=== PATIENT | male | born 1965 ===

== ENCOUNTER 2016-11-08 21:50 | Emergency (ER) | payer OTHER ==
--- NOTE | 2016-11-08 22:53 | DIAGNOSTIC IMAGING REPORT ---
PROCEDURE: XR TIBIA AND FIBULA - RIGHT INDICATION: Dog bite, initial encounter TECHNIQUE: AP and lateral views COMPARISON: None. FINDINGS: Soft tissue laceration of the right calf proximally and laterally but no evidence of a radiopaque foreign body. No fracture. Mild tibiotalar joint degenerative changes IMPRESSION: 1. Soft tissue laceration
--- NOTE | 2016-11-08 23:20 | ED NURSING NOTES ---
Clinical Report - Nurses [facility] [address] [place] [address] 11/08/2016 21:51 Patient: RACHEL TOMAS TRIAGE Triage time 22:Nov 08 2016 late entry -. Chief Complaint: PUNCTURE WOUND. Alert. No acute distress. SHASHI COMA SCORE: Shashi Coma Scale: 15- eyes open spontaneously (4); best verbal response- oriented x 4 (5); best motor response- obeys commands (6). --22: Brionna Terry R.N. 22:11/08/16. BP: 168/101. HR: 110. RR: 20. O2 saturation: 98%. Temp: 98.2 F. --22: Brionna Terry R.N. Weight: 81.6 kg stated. Height/Length: 72 inches Per Patient. BMI: 24.4. --22: Brionna Terry R.N. Medications BP MED . --22: Brionna Terry R.N. Allergies Penicillins. --22: Brionna Teryr R.N. History Historian: police and patient. Arrived in police custody. ( Dog Bite to the Right Lateral Calf.). Location of injuries: right leg. This occurred just prior to arrival. Trauma activation: Pre-hospital notification of patient arrival was received. PAST MEDICAL HX: Tetanus status: up-to-date. SOCIAL HX: Smoker- current status unknown. Alcohol use. No drug use. No infectious disease exposure. NUTRITIONAL RISK ASSESSMENT: The nutritional risk assessment revealed no deficiencies. FUNCTIONAL ASSESSMENT: Functional assessment: no impairments noted. LEARNING NEEDS ASSESSMENT: The learning needs assessment revealed no barriers. SKIN INTEGRITY ASSESSMENT: Skin integrity risk assessment completed. No skin integrity risk identified. --22: Brionna Terry R.N. PROBLEMS: Hypertension. --22:11 Brionna Terry R.N. PHYSICAL ASSESSMENT Ambulatory to room. GENERAL / NEURO / PSYCH: Oriented X 4. CVS: Capillary refill less than 2 seconds. EXTREMITIES: Neuro-vascular status intact to the extremity. Right leg. SKIN: Skin is warm and dry. ( Dog Bite to Right Lateral Calf. Puncture Wound). --23:22 Brionna Terry R.N. NURSING PROGRESS NOTES 21:57 11/08/2016 Augmentin (Amoxicillin-Pot Clavulanate) PO 875 mg given. Allergies verified and confirmed 5 rights. --21:57 Silvestre Dale R.N. ( PA doing wound care.). --22:12 Brionna Terry R.N. 22:11 Portable x-ray. --22:23 Silvestre Dale R.N. 22:51 11/08/2016 Benadryl (DiphenhydrAMINE HCl) PO 50 mg given. Allergies verified, confirmed 5 rights and sedative warning given to the patient. --22:51 Brionna Terry R.N. Patient ID band checked for patient name and birthdate: patient confirmed. Blood samples drawn from the right antecubital space with 21g butterfly by [employer][email or web address] per protocol ; labeled in presence of the patient and sent to lab: rainbow set. --22:55 Katie Prabhakar Applied dressing. Secured with kerlix ([id number]). --00:00 Katie Prabhakar. DISPOSITION / DISCHARGE Departure time: 23:30. Condition at departure: stable. No learning barriers present. Discharge instructions provided and reviewed with the patient. Reviewed medication(s) side effects, precautions, dosing and course information. Prescription(s) given to the patient. Patient verbalized understanding. Written instructions provided in Bengali. The patient was discharged to police department facility and accompanied by a police escort. He left the Emergency Department ambulatory and via police department vehicle. FALL RISK ASSESSMENT: Fall risk assessment completed. No fall risk identified. --23:52 Silvestre Dale R.N. 23:49 11/08/16. BP: 132/93. HR: 88. RR: 15. O2 saturation: 97%. Pain level now: 01/06. --23:52 Silvestre Dale R.N. Locked/Released at 11/09/2016 0:05 by Silvestre Dale R.N.
--- NOTE | 2016-11-08 23:20 | ED ORDER SUMMARY ---
..... Patient: RACHEL TOMAS OrderSheet [facility] VisitID: [id number] [place] [address] 51y, M Registration Date/Time: 11/08/2016 ORDER SHEET Weight: 81.6 kg (stated) Allergies: Penicillins GENERAL ORDERS: Tibia/Fibula Right Urgent (21:54 11/08/2016 EKoroleva P.A.-C) (Ack 22:05 NHouse ER Tech1) (22:45 CHagerty ER Time Clock Repairer) Wound Irrigation (21:54 11/08/2016 EKoroleva P.A.-C) (22:45 CHagerty ER Time Clock Repairer) HIV I and II Urgent (22:24 11/08/2016 EKoroleva P.A.-C) (Ack 22:45 CHagerty ER Time Clock Repairer) (23:51 JQuivey R.N.) HepCAB Urgent (22:24 11/08/2016 EKoroleva P.A.-C) (Ack 22:45 CHagerty ER Time Clock Repairer) (23:51 JQuivey R.N.) HepBSAG Urgent (22:24 11/08/2016 EKoroleva P.A.-C) (Ack 22:45 CHagerty ER Time Clock Repairer) (23:51 JQuivey R.N.) HepBSAB Urgent (22:24 11/08/2016 EKoroleva P.A.-C) (Ack 22:45 CHagerty ER Time Clock Repairer) (23:51 JQuivey R.N.) MEDICATION ORDERS: Augmentin PO 875 mg (NOW) (21:54 11/08/2016 EKoroleva P.A.-C) (Ack 21:55 JQuivey R.N.) (21:57 JQuivey R.N.) Benadryl PO 50 mg (NOW) (22:32 11/08/2016 EKoroleva P.A.-C) (22:51 SBalde R.N.) IV FLUIDS: ORDER SHEET NOTES: [Electronically signed by Susana Causey PErlinAErlin-May (23:25 11/08/2016)] [Electronically signed by Silvestre Dale R.N. (00:05 11/09/2016)] [Electronically locked/signed by Silvestre Dale R.N. (00:05 11/09/2016)]
--- NOTE | 2016-11-08 23:20 | ED CLINICAL REPORT ---
Clinical Report - Physicians/Mid Levels [facility] [address] [place] [address] 11/08/2016 21:51 Patient: RACHEL TOMAS Arrived- (police). Came in police custody. HISTORY OF PRESENT ILLNESS Chief Complaint: Injury to right and left leg. The injury happened just prior to arrival. Occurred on a street. Patient is experiencing mild pain. Patient denies injury to the head or neck. (atient was running, when he sustained a dog bite to his right leg, possibly is on his left leg. No prior major injury to the areas. Tdap up to date.). REVIEW OF SYSTEMS The patient sustained a laceration. He has no pain on weight bearing. All systems otherwise negative, except as recorded above. PAST HISTORY The patient has not had a prior injury to the same area. Tetanus immunization status is up-to-date. SOCIAL HISTORY Alcohol use. No drug use. PHYSICAL EXAM Head: Head atraumatic. CVS: Normal heart rate and rhythm. Heart sounds normal. Respiratory: No respiratory distress. Breath sounds normal. Skin: Skin warm. Extremities: Right le.5 cm laceration. SEE LACERATION PROCEDURE NOTE #1. (gaping lac with adipose tissue, no visible fb, no erythema/ drainage. full distal sensation and rom, lateral/ posterior mid tib/fib). Left leg. (small posterior abrasions, partial thickness.). Gait: Normal gait. Neuro, Vascular and Tendons: Vascular status intact. Motor intact. Neuro: Oriented X 3. LABS, X-RAYS, AND EKG Rt Tib/Fib X-ray: (IMPRESSION: 1. Soft tissue laceration Electronically Final signed by:Blaise Smith MD 11/08/2016 10:53:26 PM). Laboratory Tests: [id number]: (RAJ: 11/08/2016 22:45) ( MsgRcvd 11/08/2016 23:18) Final results Test Result Flag Units (Reference) HIV-1 P24 ANTIGEN NEGATIVE (NEGATIVE) HIV-1 AND OR HIV-2 ANTIBODY NEGATIVE (NEGATIVE) . PROGRESS AND PROCEDURES Laceration Repair: Time: 23:23 Nov 08 2016. Location: (right , lower extremity). Time-out completed immediately before the procedure. Length: 2 cm. Complexity: simple (local anesthesia used and sutured). Wound depth/shape- linear and involving fascia. Wound is clean. No sensory deficit or motor deficit distally. Local anesthesia provided using 1% lidocaine with epi. Subcutaneous closure: interrupted 4-0. Post-procedure: he is stable and there are no complications. Bleeding is controlled and neuro-vascular status is intact distal to the wound. Dressing applied. Tetanus immunization up-to-date. Course of Care: started on abx, however pt with now an allergy, given benadryl, given rx, stable for intermediate. No signs of active disease, no signs of fb. Stable to f/u outpatient. Patient is stable. Symptoms better. Patient/family counseled. Disposition: Discharged. Condition: good. CLINICAL IMPRESSION Multiple superficial and deep dog bites to the right lower leg and left lower leg. Bites do not appear infected. Clear for Prison. INSTRUCTIONS Protect wound and keep wound area clean. Apply bacitracin twice daily. Sutures should be removed in ten days. Elevate affected areas above chest level. You may walk and bear weight as tolerated. (suture removal in 10 days Clear for Prison). Prescription Medications: Doxycycline 100 mg: Take 1 capsule orally every 12 hours for 10 days. No refill. Metronidazole 500 mg: Take 1 tablet orally every 8 hours for 10 days. No refill OTC Medications: Take OTC medications according to label instructions. Available over the counter. Acetaminophen (available over the counter): take according to label instructions. Motrin (available over the counter): take according to label instructions. Follow-up: Follow up with your doctor in three days for wound check. (Electronically signed by Susana Causey P.A.-C 11/08/2016 23:25)
--- NOTE | 2016-11-08 23:20 | ED ORDER SUMMARY ---
..... Patient: RACHEL TOMAS OrderSheet [facility] VisitID: [id number] [place] [address] 51y, M Registration Date/Time: 11/08/2016 ORDER SHEET Weight: 81.6 kg (stated) Allergies: Penicillins GENERAL ORDERS: Tibia/Fibula Right Urgent (21:54 11/08/2016 EKoroleva P.A.-C) (Ack 22:05 NHouse ER Tech1) (22:45 CHagerty ER Technical Spec) Wound Irrigation (21:54 11/08/2016 EKoroleva P.A.-C) (22:45 CHagerty ER Technical Spec) HIV I and II Urgent (22:24 11/08/2016 EKoroleva P.A.-C) (Ack 22:45 CHagerty ER Technical Spec) (23:51 JQuivey R.N.) HepCAB Urgent (22:24 11/08/2016 EKoroleva P.A.-C) (Ack 22:45 CHagerty ER Technical Spec) (23:51 JQuivey R.N.) HepBSAG Urgent (22:24 11/08/2016 EKoroleva P.A.-C) (Ack 22:45 CHagerty ER Technical Spec) (23:51 JQuivey R.N.) HepBSAB Urgent (22:24 11/08/2016 EKoroleva P.A.-C) (Ack 22:45 CHagerty ER Technical Spec) (23:51 JQuivey R.N.) MEDICATION ORDERS: Augmentin PO 875 mg (NOW) (21:54 11/08/2016 EKoroleva P.A.-C) (Ack 21:55 JQuivey R.N.) (21:57 JQuivey R.N.) Benadryl PO 50 mg (NOW) (22:32 11/08/2016 EKoroleva P.A.-C) (22:51 SBalde R.N.) IV FLUIDS: ORDER SHEET NOTES: [Electronically signed by Susana Causey PErlinAErlin-May (23:25 11/08/2016)] [Electronically signed by Silvestre Dale R.N. (00:05 11/09/2016)] [Electronically locked/signed by Silvestre Dale R.N. (00:05 11/09/2016)]
--- NOTE | 2016-11-08 23:20 | ED NURSING NOTES ---
Clinical Report - Nurses [facility] [address] [place] [address] 11/08/2016 21:51 Patient: RACHEL TOMAS TRIAGE Triage time 22:Nov 08 2016 late entry -. Chief Complaint: PUNCTURE WOUND. Alert. No acute distress. SHASHI COMA SCORE: Shashi Coma Scale: 15- eyes open spontaneously (4); best verbal response- oriented x 4 (5); best motor response- obeys commands (6). --22: Brionna Terry R.N. 22:11/08/16. BP: 168/101. HR: 110. RR: 20. O2 saturation: 98%. Temp: 98.2 F. --22: Brionna Terry R.N. Weight: 81.6 kg stated. Height/Length: 72 inches Per Patient. BMI: 24.4. --22: Brionna Terry R.N. Medications BP MED . --22: Brionna Terry R.N. Allergies Penicillins. --22: Brionna Terry R.N. History Historian: police and patient. Arrived in police custody. ( Dog Bite to the Right Lateral Calf.). Location of injuries: right leg. This occurred just prior to arrival. Trauma activation: Pre-hospital notification of patient arrival was received. PAST MEDICAL HX: Tetanus status: up-to-date. SOCIAL HX: Smoker- current status unknown. Alcohol use. No drug use. No infectious disease exposure. NUTRITIONAL RISK ASSESSMENT: The nutritional risk assessment revealed no deficiencies. FUNCTIONAL ASSESSMENT: Functional assessment: no impairments noted. LEARNING NEEDS ASSESSMENT: The learning needs assessment revealed no barriers. SKIN INTEGRITY ASSESSMENT: Skin integrity risk assessment completed. No skin integrity risk identified. --22: Brionna Terry R.N. PROBLEMS: Hypertension. --22:11 Brionna Terry R.N. PHYSICAL ASSESSMENT Ambulatory to room. GENERAL / NEURO / PSYCH: Oriented X 4. CVS: Capillary refill less than 2 seconds. EXTREMITIES: Neuro-vascular status intact to the extremity. Right leg. SKIN: Skin is warm and dry. ( Dog Bite to Right Lateral Calf. Puncture Wound). --23:22 Brionna Terry R.N. NURSING PROGRESS NOTES 21:57 11/08/2016 Augmentin (Amoxicillin-Pot Clavulanate) PO 875 mg given. Allergies verified and confirmed 5 rights. --21:57 Silvestre Dale R.N. ( PA doing wound care.). --22:12 Brionna Terry R.N. 22:11 Portable x-ray. --22:23 Silvestre Dale R.N. 22:51 11/08/2016 Benadryl (DiphenhydrAMINE HCl) PO 50 mg given. Allergies verified, confirmed 5 rights and sedative warning given to the patient. --22:51 Brionna Terry R.N. Patient ID band checked for patient name and birthdate: patient confirmed. Blood samples drawn from the right antecubital space with 21g butterfly by [employer] per protocol ; labeled in presence of the patient and sent to lab: rainbow set. --22:55 Katie Prabhakar Applied dressing. Secured with kerlix ([id number]). --00:00 Katie Prabhakar. DISPOSITION / DISCHARGE Departure time: 23:30. Condition at departure: stable. No learning barriers present. Discharge instructions provided and reviewed with the patient. Reviewed medication(s) side effects, precautions, dosing and course information. Prescription(s) given to the patient. Patient verbalized understanding. Written instructions provided in Croatian. The patient was discharged to police department facility and accompanied by a police escort. He left the Emergency Department ambulatory and via police department vehicle. FALL RISK ASSESSMENT: Fall risk assessment completed. No fall risk identified. --23:52 Silvestre Dale R.N. 23:49 11/08/16. BP: 132/93. HR: 88. RR: 15. O2 saturation: 97%. Pain level now: 01/06. --23:52 Silvestre Dale R.N. Locked/Released at 11/09/2016 0:05 by Silvestre Dale R.N.
--- NOTE | 2016-11-08 23:20 | ED CLINICAL REPORT ---
Clinical Report - Physicians/Mid Levels [facility] [address] [place] [address] 11/08/2016 21:51 Patient: RACHEL TOMAS Arrived- (police). Came in police custody. HISTORY OF PRESENT ILLNESS Chief Complaint: Injury to right and left leg. The injury happened just prior to arrival. Occurred on a street. Patient is experiencing mild pain. Patient denies injury to the head or neck. (atient was running, when he sustained a dog bite to his right leg, possibly is on his left leg. No prior major injury to the areas. Tdap up to date.). REVIEW OF SYSTEMS The patient sustained a laceration. He has no pain on weight bearing. All systems otherwise negative, except as recorded above. PAST HISTORY The patient has not had a prior injury to the same area. Tetanus immunization status is up-to-date. SOCIAL HISTORY Alcohol use. No drug use. PHYSICAL EXAM Head: Head atraumatic. CVS: Normal heart rate and rhythm. Heart sounds normal. Respiratory: No respiratory distress. Breath sounds normal. Skin: Skin warm. Extremities: Right le.5 cm laceration. SEE LACERATION PROCEDURE NOTE #1. (gaping lac with adipose tissue, no visible fb, no erythema/ drainage. full distal sensation and rom, lateral/ posterior mid tib/fib). Left leg. (small posterior abrasions, partial thickness.). Gait: Normal gait. Neuro, Vascular and Tendons: Vascular status intact. Motor intact. Neuro: Oriented X 3. LABS, X-RAYS, AND EKG Rt Tib/Fib X-ray: (IMPRESSION: 1. Soft tissue laceration Electronically Final signed by:Blaise Smith MD 11/08/2016 10:53:26 PM). Laboratory Tests: [id number]: (RAJ: 11/08/2016 22:45) ( MsgRcvd 11/08/2016 23:18) Final results Test Result Flag Units (Reference) HIV-1 P24 ANTIGEN NEGATIVE (NEGATIVE) HIV-1 AND OR HIV-2 ANTIBODY NEGATIVE (NEGATIVE) . PROGRESS AND PROCEDURES Laceration Repair: Time: 23:23 Nov 08 2016. Location: (right , lower extremity). Time-out completed immediately before the procedure. Length: 2 cm. Complexity: simple (local anesthesia used and sutured). Wound depth/shape- linear and involving fascia. Wound is clean. No sensory deficit or motor deficit distally. Local anesthesia provided using 1% lidocaine with epi. Subcutaneous closure: interrupted 4-0. Post-procedure: he is stable and there are no complications. Bleeding is controlled and neuro-vascular status is intact distal to the wound. Dressing applied. Tetanus immunization up-to-date. Course of Care: started on abx, however pt with now an allergy, given benadryl, given rx, stable for long-term. No signs of active disease, no signs of fb. Stable to f/u outpatient. Patient is stable. Symptoms better. Patient/family counseled. Disposition: Discharged. Condition: good. CLINICAL IMPRESSION Multiple superficial and deep dog bites to the right lower leg and left lower leg. Bites do not appear infected. Clear for Retirement. INSTRUCTIONS Protect wound and keep wound area clean. Apply bacitracin twice daily. Sutures should be removed in ten days. Elevate affected areas above chest level. You may walk and bear weight as tolerated. (suture removal in 10 days Clear for Retirement). Prescription Medications: Doxycycline 100 mg: Take 1 capsule orally every 12 hours for 10 days. No refill. Metronidazole 500 mg: Take 1 tablet orally every 8 hours for 10 days. No refill OTC Medications: Take OTC medications according to label instructions. Available over the counter. Acetaminophen (available over the counter): take according to label instructions. Motrin (available over the counter): take according to label instructions. Follow-up: Follow up with your doctor in three days for wound check. (Electronically signed by Susana Causey P.A.-C 11/08/2016 23:25)
--- NOTE | 2016-11-09 00:06 | ED DISCHARGE INSTRUCTIONS ---
Patient: RACHEL TOMAS General Instructions [facility] VisitID: [id number] [place] [address] 51y, M Registration Date/Time: 11/08/2016 Multiple superficial and deep dog bites to the right lower leg and left lower leg. Bites do not appear infected. Clear for Assisted. INSTRUCTIONS Protect wound and keep wound area clean. Apply bacitracin twice daily. Sutures should be removed in ten days. Elevate affected areas above chest level. You may walk and bear weight as tolerated. (suture removal in 10 days Clear for Assisted). Prescription Medications: Doxycycline 100 mg: Take 1 capsule orally every 12 hours for 10 days. No refill. Metronidazole 500 mg: Take 1 tablet orally every 8 hours for 10 days. No refill OTC Medications: Take OTC medications according to label instructions. Available over the counter. Acetaminophen (available over the counter): take according to label instructions. Motrin (available over the counter): take according to label instructions. Follow-up: Follow up with your doctor in three days for wound check. ADDITIONAL INFORMATION Dog Bite If a dog has bitten you and the wound is deep enough to break the skin, an infection may occur. Therefore, you should watch for the warning signs listed below. The doctor may not close the wound completely. This is to allow fluid to drain in the event of an infection. Home Care Watch the wound for signs of infection listed below. In certain types of bites, antibiotics may be prescribed. Begin taking these as soon as possible, as directed until they are all gone. Rabies Prevention If you live in an area where rabies occurs in wild animals, the rabies virus can be passed to cats and dogs. An infected animal can pass the rabies virus to you during a bite. If ahealthy-looking pet dog has bitten you, it should be kept in a secure area for the next 10 days to watch for signs of illness. If the pet venetian blind maker wont cooperate with you, contact the [facility] animal control department (or local law enforcement). If the animal becomes ill or dies [id number] days, contact your animal control department at once. The animal must be tested for rabies. If the animal stays healthy for the next 10 days, then there is no danger of rabies in the dog or you. Pets fully vaccinated against rabies (2 shots) are at very low risk for the infection. However, because human rabies is almost always fatal, any biting dog should be kept in confinement for 10 days as an extra precaution. If a stray dog bit you, contact the animal control department. They can provide information on capture, quarantine, and animal rabies testing. If you are unable to locate the animal that bit you in the next 2days, and if rabies exists in your region, you must be evaluated for the rabies vaccine series. Contact your doctor or return here promptly. All animal bites should be reported to the [facility] animal control department. If you were not given a form to fill out, you can report it yourself by calling. Follow Up with your doctor as advised. Most skin wounds heal within 10 days. However, an infection may occur even with proper treatment. Check your woundevery 6 hoursfor 2 days, then at least once a day for the next two days for the signs of infection listed below. Get Prompt Medical Attention if any of the following occur: Signs of infection: Spreading redness Increased pain or swelling Fever of 100.4F (38C) or higher, or as directed by your healthcare provider Colored fluid or pus draining from the wound Headache, confusion, strange behavior, or a seizure (signs of a rabies infection) Metronidazole Oral tablet What is this medicine? METRONIDAZOLE (me troe NI da zole) is an antiinfective. It is used to treat certain kinds of bacterial and protozoal infections. It will not work for colds, flu, or other viral infections. How should I use this medicine? Take this medicine by mouth with a full glass of water. Follow the directions on the prescription label. Take your medicine at regular intervals. Do not take your medicine more often than directed. Take all of your medicine as directed even if you think you are better. Do not skip doses or stop your medicine early. Talk to your molding fitter regarding the use of this medicine in children. Special care may be needed. What side effects may I notice from receiving this medicine? Side effects that you should report to your doctor or health rn primary care as soon as possible: allergic reactions like skin rash or hives, swelling of the face, lips, or tongue confusion, clumsiness difficulty speaking discolored or sore mouth dizziness fever, infection numbness, tingling, pain or weakness in the hands or feet trouble passing urine or change in the amount of urine redness, blistering, peeling or loosening of the skin, including inside the mouth seizures unusually weak or tired vaginal irritation, dryness, or discharge Side effects that usually do not require medical attention (report to your doctor or health rn primary care if they continue or are bothersome): diarrhea headache irritability metallic taste nausea stomach pain or cramps trouble sleeping What may interact with this medicine? Do not take this medicine with any of the following medications: alcohol or any product that contains alcohol amprenavir oral solution cisapride disulfiram dofetilide dronedarone paclitaxel injection pimozide ritonavir oral solution sertraline oral solution sulfamethoxazole-trimethoprim injection thioridazine ziprasidone This medicine may also interact with the following medications: cimetidine lithium other medicines that prolong the QT interval (cause an abnormal heart rhythm) phenobarbital phenytoin warfarin What if I miss a dose? If you miss a dose, take it as soon as you can. If it is almost time for your next dose, take only that dose. Do not take double or extra doses. Where should I keep my medicine? Keep out of the reach of children. Store at room temperature below 25 degrees C (77 degrees F). Protect from light. Keep container tightly closed. Throw away any unused medicine after the expiration date. What should I tell my health care provider before I take this medicine? They need to know if you have any of these conditions: anemia or other blood disorders disease of the nervous system fungal or yeast infection if you drink alcohol containing drinks liver disease seizures an unusual or allergic reaction to metronidazole, or other medicines, foods, dyes, or preservatives or trying to get breast-feeding What should I watch for while using this medicine? Tell your doctor or health rn primary care if your symptoms do not improve or if they get worse. You may get drowsy or dizzy. Do not drive, use machinery, or do anything that needs mental alertness until you know how this medicine affects you. Do not stand or sit up quickly, especially if you are an older patient. This reduces the risk of dizzy or fainting spells. Avoid alcoholic drinks while you are taking this medicine and for three days afterward. Alcohol may make you feel dizzy, sick, or flushed. If you are being treated for a sexually transmitted disease, avoid sexual contact until you have finished your treatment. Your sexual partner may also need treatment. You have been given the following additional information: Dog Bite Metronidazole Oral tablet You may walk and bear weight as tolerated. (Electronically signed by Susana Causey P.A.-C 11/08/2016 23:25)
--- NOTE | 2016-11-09 00:06 | ED MAR SUMMARY ---
..... Medication Administration [facility] [address] [place] [address] Patient: RACHEL TOMAS Visit ID: [id number] 51y, M Weight: 81.6 kg Height/Length: 72 in BMI: 24.4 ALLERGIES: Penicillins Given 21:57 11/08/2016 Silvestre Dale, RErlinNErlin Medication Administered: AUGMENTIN [PO] (AMOXICILLIN-POT CLAVULANATE), Dose: 875 mg PO. Medication Ordered: Augmentin PO 875 mg (NOW). Given 22:51 11/08/2016 Brionna Terry RErlinNErlin Medication Administered: BENADRYL [PO] (DIPHENHYDRAMINE HCL), Dose: 50 mg PO. Medication Ordered: Benadryl PO 50 mg (NOW).
--- NOTE | 2016-11-09 00:06 | ED DISCHARGE INSTRUCTIONS ---
Patient: RACHEL TOMAS General Instructions [facility] VisitID: [id number] [place] [address] 51y, M Registration Date/Time: 11/08/2016 Multiple superficial and deep dog bites to the right lower leg and left lower leg. Bites do not appear infected. Clear for Mcc. INSTRUCTIONS Protect wound and keep wound area clean. Apply bacitracin twice daily. Sutures should be removed in ten days. Elevate affected areas above chest level. You may walk and bear weight as tolerated. (suture removal in 10 days Clear for Mcc). Prescription Medications: Doxycycline 100 mg: Take 1 capsule orally every 12 hours for 10 days. No refill. Metronidazole 500 mg: Take 1 tablet orally every 8 hours for 10 days. No refill OTC Medications: Take OTC medications according to label instructions. Available over the counter. Acetaminophen (available over the counter): take according to label instructions. Motrin (available over the counter): take according to label instructions. Follow-up: Follow up with your doctor in three days for wound check. ADDITIONAL INFORMATION Dog Bite If a dog has bitten you and the wound is deep enough to break the skin, an infection may occur. Therefore, you should watch for the warning signs listed below. The doctor may not close the wound completely. This is to allow fluid to drain in the event of an infection. Home Care Watch the wound for signs of infection listed below. In certain types of bites, antibiotics may be prescribed. Begin taking these as soon as possible, as directed until they are all gone. Rabies Prevention If you live in an area where rabies occurs in wild animals, the rabies virus can be passed to cats and dogs. An infected animal can pass the rabies virus to you during a bite. If ahealthy-looking pet dog has bitten you, it should be kept in a secure area for the next 10 days to watch for signs of illness. If the pet cartoon designer wont cooperate with you, contact the [facility] animal control department (or local law enforcement). If the animal becomes ill or dies [id number] days, contact your animal control department at once. The animal must be tested for rabies. If the animal stays healthy for the next 10 days, then there is no danger of rabies in the dog or you. Pets fully vaccinated against rabies (2 shots) are at very low risk for the infection. However, because human rabies is almost always fatal, any biting dog should be kept in confinement for 10 days as an extra precaution. If a stray dog bit you, contact the animal control department. They can provide information on capture, quarantine, and animal rabies testing. If you are unable to locate the animal that bit you in the next 2days, and if rabies exists in your region, you must be evaluated for the rabies vaccine series. Contact your doctor or return here promptly. All animal bites should be reported to the [facility] animal control department. If you were not given a form to fill out, you can report it yourself by calling. Follow Up with your doctor as advised. Most skin wounds heal within 10 days. However, an infection may occur even with proper treatment. Check your woundevery 6 hoursfor 2 days, then at least once a day for the next two days for the signs of infection listed below. Get Prompt Medical Attention if any of the following occur: Signs of infection: Spreading redness Increased pain or swelling Fever of 100.4F (38C) or higher, or as directed by your healthcare provider Colored fluid or pus draining from the wound Headache, confusion, strange behavior, or a seizure (signs of a rabies infection) Metronidazole Oral tablet What is this medicine? METRONIDAZOLE (me troe NI da zole) is an antiinfective. It is used to treat certain kinds of bacterial and protozoal infections. It will not work for colds, flu, or other viral infections. How should I use this medicine? Take this medicine by mouth with a full glass of water. Follow the directions on the prescription label. Take your medicine at regular intervals. Do not take your medicine more often than directed. Take all of your medicine as directed even if you think you are better. Do not skip doses or stop your medicine early. Talk to your tax specialist regarding the use of this medicine in children. Special care may be needed. What side effects may I notice from receiving this medicine? Side effects that you should report to your doctor or health care center manager as soon as possible: allergic reactions like skin rash or hives, swelling of the face, lips, or tongue confusion, clumsiness difficulty speaking discolored or sore mouth dizziness fever, infection numbness, tingling, pain or weakness in the hands or feet trouble passing urine or change in the amount of urine redness, blistering, peeling or loosening of the skin, including inside the mouth seizures unusually weak or tired vaginal irritation, dryness, or discharge Side effects that usually do not require medical attention (report to your doctor or health care center manager if they continue or are bothersome): diarrhea headache irritability metallic taste nausea stomach pain or cramps trouble sleeping What may interact with this medicine? Do not take this medicine with any of the following medications: alcohol or any product that contains alcohol amprenavir oral solution cisapride disulfiram dofetilide dronedarone paclitaxel injection pimozide ritonavir oral solution sertraline oral solution sulfamethoxazole-trimethoprim injection thioridazine ziprasidone This medicine may also interact with the following medications: cimetidine lithium other medicines that prolong the QT interval (cause an abnormal heart rhythm) phenobarbital phenytoin warfarin What if I miss a dose? If you miss a dose, take it as soon as you can. If it is almost time for your next dose, take only that dose. Do not take double or extra doses. Where should I keep my medicine? Keep out of the reach of children. Store at room temperature below 25 degrees C (77 degrees F). Protect from light. Keep container tightly closed. Throw away any unused medicine after the expiration date. What should I tell my health care provider before I take this medicine? They need to know if you have any of these conditions: anemia or other blood disorders disease of the nervous system fungal or yeast infection if you drink alcohol containing drinks liver disease seizures an unusual or allergic reaction to metronidazole, or other medicines, foods, dyes, or preservatives or trying to get breast-feeding What should I watch for while using this medicine? Tell your doctor or health care center manager if your symptoms do not improve or if they get worse. You may get drowsy or dizzy. Do not drive, use machinery, or do anything that needs mental alertness until you know how this medicine affects you. Do not stand or sit up quickly, especially if you are an older patient. This reduces the risk of dizzy or fainting spells. Avoid alcoholic drinks while you are taking this medicine and for three days afterward. Alcohol may make you feel dizzy, sick, or flushed. If you are being treated for a sexually transmitted disease, avoid sexual contact until you have finished your treatment. Your sexual partner may also need treatment. You have been given the following additional information: Dog Bite Metronidazole Oral tablet You may walk and bear weight as tolerated. (Electronically signed by Susana Causey P.A.-C 11/08/2016 23:25)
--- NOTE | 2016-11-09 00:06 | ED MED RECONCILIATION SUMMARY ---
Patient: RACHEL TOMAS Medication Reconciliation Report [facility] VisitID: [id number] [place] [address] 51y, M Registration Date/Time: 11/08/2016 Weight: 81.6 kg Height/Length: 72 in. BMI: 24.4 ALLERGIES: Penicillins The patient's Home Medications are listed below: THE FOLLOWING MEDICATIONS NEED TO BE RECONCILED: BP MED The source(s) of the original Home Medication information: Not obtained. The following Medications were given to the patient in the Emergency Department: Augmentin [PO] PO 875 mg, administered: 11/08/2016 9:57:00 PM Benadryl [PO] PO 50 mg, administered: 11/08/2016 10:51:00 PM The following Medications were prescribed to the patient: Take OTC medications according to label instructions. Available over the counter. -- Susana Causey, P.A.-C Acetaminophen (available over the counter): take according to label instructions. -- Susana Causey, P.A.-C Motrin (available over the counter): take according to label instructions. -- Susana Causey, P.A.-C Doxycycline 100 mg: Take 1 capsule orally every 12 hours for 10 days. No refill. -- Susana Causey, P.A.-C Metronidazole 500 mg: Take 1 tablet orally every 8 hours for 10 days. No refill -- Susana Causey, P.A.-C
--- NOTE | 2016-11-09 00:06 | ED MED RECONCILIATION SUMMARY ---
Patient: RACHEL TOMAS Medication Reconciliation Report [facility] VisitID: [id number] [place] [address] 51y, M Registration Date/Time: 11/08/2016 Weight: 81.6 kg Height/Length: 72 in. BMI: 24.4 ALLERGIES: Penicillins The patient's Home Medications are listed below: THE FOLLOWING MEDICATIONS NEED TO BE RECONCILED: BP MED The source(s) of the original Home Medication information: Not obtained. The following Medications were given to the patient in the Emergency Department: Augmentin [PO] PO 875 mg, administered: 11/08/2016 9:57:00 PM Benadryl [PO] PO 50 mg, administered: 11/08/2016 10:51:00 PM The following Medications were prescribed to the patient: Take OTC medications according to label instructions. Available over the counter. -- Susana Causey, P.A.-C Acetaminophen (available over the counter): take according to label instructions. -- Susana Causey, P.A.-C Motrin (available over the counter): take according to label instructions. -- Susana Causey, P.A.-C Doxycycline 100 mg: Take 1 capsule orally every 12 hours for 10 days. No refill. -- Susana Causey, P.A.-C Metronidazole 500 mg: Take 1 tablet orally every 8 hours for 10 days. No refill -- Susana Causey, P.A.-C
--- NOTE | 2016-11-09 00:06 | ED MAR SUMMARY ---
..... Medication Administration Record [facility] [address] [place] [address] Patient: RACHEL TOMAS Visit ID: [id number] 51y, M Weight: 81.6 kg Height/Length: 72 in BMI: 24.4 ALLERGIES: Penicillins Given 21:57 11/08/2016 Silvestre Dale, RErlinNErlin Medication Administered: AUGMENTIN [PO] (AMOXICILLIN-POT CLAVULANATE), Dose: 875 mg PO. Medication Ordered: Augmentin PO 875 mg (NOW). Given 22:51 11/08/2016 Brionna Terry RErlniNErlin Medication Administered: BENADRYL [PO] (DIPHENHYDRAMINE HCL), Dose: 50 mg PO. Medication Ordered: Benadryl PO 50 mg (NOW).
== END 2016-11-08 23:30 ==
LOC: ED SRH 21:50
DX: S81.851A Open bite, right lower leg, initial encounter (principal); S81.852A Open bite, left lower leg, initial encounter; W54.0XXA Bitten by dog, initial encounter; Y93.02 Activity, running; Y92.410 Unspecified street and highway as the place of occurrence of the external cause; Y99.9 Unspecified external cause status; Z88.0 Allergy status to penicillin